=== PATIENT | male | born 1985 | race Caucasian/White ===

== ENCOUNTER 2020-12-13 10:03 | Emergency (ER) | payer OTHER ==
[2020-12-13 10:11] VITALS: BP 127/81; PULSE 98; TEMP 98.2; BMI 29.9
[2020-12-13] MEDS ORDERED: KETOROLAC TROMETHAMINE 30 MG/1 ML VIAL IM ONE (10:38)
[2020-12-13] MEDS ORDERED: LIDOCAINE 5% TOPICAL PATCH TP ONE (10:41)
[2020-12-13] MEDS ORDERED: diazePAM 5 MG TABLET PO ONE (11:15)
[2020-12-13] MEDS ORDERED: LIDOCAINE PATCH REMOVAL MC SCH (22:00)
== END 2020-12-13 12:06 | disposition home or self-care (01) ==
LOC: JER 10:03 → JERFT 10:03
PROC: 3E023GC Introduction of Other Therapeutic Substance into Muscle, Percutaneous Approach (ICD-10-PCS; principal; 2020-12-13)
DX: M54.42 Lumbago with sciatica, left side (principal)
CPT/HCPCS: 99284-25

== ENCOUNTER 2022-01-06 08:13 | Emergency (ER) | payer OTHER ==
[2022-01-06 08:18] VITALS: BP 114/75; PULSE 90; RESP 18; TEMP 97.9; BMI 28.3
[2022-01-06] MEDS ORDERED: LIDOCAINE 5% TOPICAL PATCH TP ONE (08:52)
[2022-01-06] MEDS ORDERED: ACETAMINOPHEN 325 MG TABLET (FP) PO ONE (08:52)
[2022-01-06] MEDS ORDERED: METHOCARBAMOL 500 MG TABLET PO ONE (08:57)
[2022-01-06] MEDS ORDERED: KETOROLAC TROMETHAMINE 60 MG/2 ML VIAL IM ONE (08:57)
[2022-01-06] MEDS ORDERED: ACETAMINOPHEN 325 MG TABLET (FP) ONE (09:04)
[2022-01-06] MEDS ORDERED: METHOCARBAMOL 500 MG TABLET ONE (09:04)
[2022-01-06] MEDS ORDERED: LIDOCAINE 5% TOPICAL PATCH ONE (09:04)
[2022-01-06] MEDS ORDERED: KETOROLAC TROMETHAMINE 60 MG/2 ML VIAL ONE (09:04)
[2022-01-06] MEDS ORDERED: LIDOCAINE PATCH REMOVAL MC SCH (22:00)
== END 2022-01-06 10:59 | disposition home or self-care (01) ==
LOC: JER 08:13
PROC: 3E0233Z Introduction of Anti-inflammatory into Muscle, Percutaneous Approach (ICD-10-PCS; principal; 2022-01-06)
DX: M54.50 Low back pain, unspecified (principal)
CPT/HCPCS: 72100-TC-FY; 99284-25

== ENCOUNTER 2023-04-15 09:40 | Emergency (ER) | payer OTHER ==
[2023-04-15 09:50] VITALS: BP 135/83; PULSE 94; RESP 18; TEMP 98.3; BMI 29.9
== END 2023-04-15 12:37 | disposition home or self-care (01) ==
LOC: JERFT 09:40
DX: U07.1 COVID-19 (principal); J06.9 Acute upper respiratory infection, unspecified; R09.81 Nasal congestion; R05.9 Cough, unspecified; R09.89 Other specified symptoms and signs involving the circulatory and respiratory systems
CPT/HCPCS: 0241U-QW; 99283-25